=== PATIENT | female | born 1990 | race African-American/Black ===

== ENCOUNTER 2016-12-11 12:06 | Emergency (ER) | payer OTHER ==
[2016-12-11 12:24] VITALS: BP 129/81; PULSE 77; TEMP 98.6; BMI 29.0
[2016-12-11] MEDS ORDERED: IBUPROFEN 600 MG TABLET (FP) PO ONE ×2 (12:52→12:58)
--- NOTE | 2016-12-11 13:06 | PDOC ---
History of Present Illness - General Chief Complaint: Cold Symptoms Stated Complaint: bodyaches Time Seen by Provider: 12/11/16 12:45 History Source: Patient Exam Limitations: No Limitations - History of Present Illness Initial Comments: 12/11/16 13:01 25 yr female no medical history with c/o body aches, sore throat chills started 2 days ago. no fever, no vomiting. Pt took Nyquil last night. no back pain or urinary complaints. LMP 3 weeks ago denies . Severity: reports: mild Past History - Past Medical History Allergies/Adverse Reactions: Allergies Allergy/AdvReac Type Severity Reaction Status Date / Time azithromycin [From Zithromax] Allergy Mild Rash Verified 12/11/16 12:20 Home Medications: Ambulatory Orders NK [No Known Home Medication] 12/11/16 Other medical history: denies - Surgical History Other Surgical History: 12/11/16 13:04 none - Family Disease History Comment:: 12/11/16 13:04 none - Psycho/Social/Smoking Cessation Hx Anxiety: No Suicidal Ideation: No Smoking Status: No Smoking History: Never smoked Number of Cigarettes Smoked Daily: 0 Hx Alcohol Use: No Drug/Substance Use Hx: No Respiratory Specific PMHX - Complaint Specific PMHX Angina: No Bronchitis: No Pneumonia: No Pulmonary Embolus: No TB (Tuberculosis): No Review of Systems - Review of Systems Able to Perform ROS?: Yes Comments:: 12/11/16 13:04 Is the patient limited Indian proficient: No Constitutional: Yes: Symptoms Reported HEENTM: Yes: Symptoms Reported Respiratory: Yes: Symptoms reported, Cough *Physical Exam - Vital Signs Last Vital Signs Temp Pulse Resp BP Pulse Ox 98.6 F 77 20 129/81 98 12/11/16 12:20 12/11/16 12:20 12/11/16 12:20 12/11/16 12:20 12/11/16 12:20 - Physical Exam General Appearance: Yes: Nourished, Appropriately Dressed HEENT: positive: EOMI, AMANDA, Normal ENT Inspection, TMs Normal, Pharynx Normal Neck: positive: Supple. negative: Tender Respiratory/Chest: positive: Lungs Clear, Normal Breath Sounds Cardiovascular: positive: Regular Rhythm, Regular Rate Gastrointestinal/Abdominal: positive: Normal Bowel Sounds, Soft Extremity: positive: Normal Capillary Refill, Normal Inspection, Normal Range of Motion Integumentary: positive: Normal Color, Dry, Warm Neurologic: positive: Fully Oriented, Alert, Normal Mood/Affect, Normal Response , Motor Strength 02/28 ED Treatment Course - Medications Given in the ED: ED Medications Discontinued Medications Generic Name Dose Route Start Last Admin Trade Name Ashli PRN Reason Stop Dose Admin Ibuprofen 600 mg 12/11/16 12:52 12/11/16 13:01 Motrin - PO 12/11/16 12:53 600 mg ONCE ONE Administration Medical Decision Making - Medical Decision Making 12/11/16 13:06 cc: body aches, sore throat no fever or vomiting will check for strep and flu 12/11/16 13:08 *DC/Admit/Observation/Transfer Diagnosis at time of Disposition: Pharyngitis Qualifiers: Pharyngitis/tonsillitis etiology: unspecified etiology Qualified Code(s): J02.9 - Acute pharyngitis, unspecified - Discharge Dispostion Disposition: HOME Condition at time of disposition: Good - Patient Instructions Additional Instructions: drink pleanty of fluids garlge with warm salt water 4-5 times a day take ibuprofen (over the counter advil, motrin, ibuprofen) 600mg every 6hrs for pain follow with your doctor if worse or return to ER for any worsening symptoms
== END 2016-12-11 14:15 | disposition home or self-care (01) ==
LOC: JERFT 12:06
DX: J02.9 Acute pharyngitis, unspecified (principal)
CPT/HCPCS: 87070; 87430; 87804; 99281-25

== ENCOUNTER 2019-04-26 16:18 | Emergency (ER) | payer OTHER ==
[2019-04-26 16:33] VITALS: TEMP 98.4; BMI 25.0
--- NOTE | 2019-04-26 16:35 | PDOC ---
Rapid Medical Evaluation Chief Complaint: Pain, Acute Time Seen by Provider: 04/26/19 16:29 Medical Evaluation: Allergies Allergy/AdvReac Type Severity Reaction Status Date / Time azithromycin [From Zithromax] Allergy Mild Rash Verified 12/11/16 12:20 04/26/19 16:30 I have performed a brief in-person evaluation of this patient. The patient presents with a chief complaint of: sent from [facility], told had ovarian cyst to right- worsen pain with pressure/ + vag bleeding / pain with void and bowels Pertinent physical exam findings: tearful , abd soft but + RLQ pain I have ordered the following: Ua/ UCg, US pelvis The patient will proceed to the ED for further evaluation. 04/26/19 16:34
[2019-04-26 17:37] VITALS: BP 110/40; PULSE 77
[2019-04-26 17:53] LABS: EPI CELLS 2.2 /HPF (0-5/HPF); HYALINE CASTS 1 /lpf (0-8); URINE APPEARANCE CLEAR; URINE BACTERIA 9.3 /hpf (NEGATIVE); URINE BILIRUBIN NEGATIVE (NEGATIVE); URINE COLOR YELLOW; URINE GLUCOSE (UA) NEGATIVE (NEGATIVE); URINE KETONE NEGATIVE (NEGATIVE); URINE LEUK ESTERASE NEGATIVE (NEGATIVE); URINE NITRITE NEGATIVE (NEGATIVE); URINE PROTEIN NEGATIVE (NEGATIVE); URINE RBC 1 /hpf (0-4); URINE UROBILINOGEN 0.2 mg/dL (0.2-1.0); URINE WBC 1 /hpf (0-5)
[2019-04-26 17:54] LABS: HCG,QUALITATIVE URINE Negative
--- NOTE | 2019-04-26 19:20 | PDOC ---
History of Present Illness - General Chief Complaint: Pain, Acute Stated Complaint: PAIN (CYST ON RT SIDE) Time Seen by Provider: 04/26/19 16:29 History Source: Patient Exam Limitations: No Limitations - History of Present Illness Initial Comments: 04/26/19 19:20 28 yo female pmh sig for recently discovered R ovarian cyst presents to the ED for RLQ abdominal pain, pain on urination and defecation. Pt states she saw her primary [employer] DEV[employer] Dr. Townsend last week for a routine check up, discussed RLQ pain she has felt on and off for approx 4 years in the RLQ, was sent for an US and found to have a large R ovarian cyst described as the size of a tennis ball and given the instructions to come to the ED for severe pain. Pain is described as sharp with radiation to the bilateral lower quadrants with pain on urination and defection. Pt states the quality of pain the same as the past 4 years however, the intensity, radiation and pain on urination and defecation are new. Denies N/V/F/C, back pain, blood in the stool, CP, SOB. Dr. Townsend plan is to potentially remove the Cyst as per patient. Past History - Past Medical History Allergies/Adverse Reactions: Allergies Allergy/AdvReac Type Severity Reaction Status Date / Time azithromycin [From Zithromax] Allergy Mild Rash Verified 04/26/19 16:33 Home Medications: Ambulatory Orders NK [No Known Home Medication] 12/11/16 COPD: No - Surgical History Abdominal Surgery: Yes (POLYPS REMOVED) - Reproductive History Is Patient Now?: No - Suicide/Smoking/Psychosocial Hx Smoking Status: No Smoking History: Current some day smoker Number of Cigarettes Smoked Daily: 0 Information on smoking cessation initiated: No Hx Alcohol Use: Yes (OCCASIONALLY) Drug/Substance Use Hx: No Review of Systems - Review of Systems Constitutional: No: Chills, Fever Respiratory: No: Shortness of Breath Cardiac (ROS): No: Chest Pain, Edema ABD/GI: Yes: Other (pain with attempting to defecate ). No: Constipated, Diarrhea, Nausea, Vomiting : Yes: Dysuria. No: Burning, Discharge, Frequency, Flank Pain Musculoskeletal: No: Back Pain Neurological: No: Headache, Numbness, Weakness *Physical Exam - Vital Signs Last Vital Signs Temp Pulse Resp BP Pulse Ox 98.4 F 77 24 H 110/40 L 98 04/26/19 16:30 04/26/19 17:36 04/26/19 17:36 04/26/19 17:36 04/26/19 17:36 - Physical Exam General Appearance: Yes: Nourished, Appropriately Dressed. No: Apparent Distress HEENT: positive: EOMI Neck: positive: Supple Respiratory/Chest: positive: Lungs Clear, Normal Breath Sounds. negative: Crackles, Rales, Rhonchi, Stridor, Wheezing Cardiovascular: positive: Regular Rhythm, Regular Rate, S1, S2. negative: Edema , JVD, Murmur Vascular Pulses: Dorsalis-Pedis (R): 4+, Doralis-Pedis (L): 4+ Female Pelvic Exam: positive: other (AMA prior to completing exam) Gastrointestinal/Abdominal: positive: Flat, Soft, Tenderness (RLQ). negative: Pulsatile Mass, Distended, Guarding, Rebound Musculoskeletal: negative: CVA Tenderness Extremity: positive: Normal Capillary Refill, Normal Inspection Integumentary: positive: Normal Color, Dry, Warm Neurologic: positive: Fully Oriented, Alert ED Treatment Course - ADDITIONAL ORDERS Additional order review: Laboratory Results 04/26/19 17:40 Urine Color Yellow Urine Appearance Clear Urine pH 5.0 Ur Specific Gregory 1.023 Urine Protein Negative Urine Glucose (UA) Negative Urine Ketones Negative Urine Blood 3+ H Urine Nitrite Negative Urine Bilirubin Negative Urine Urobilinogen 0.2 Ur Leukocyte Esterase Negative Urine WBC (Auto) 1 Urine RBC (Auto) 1 Urine Casts (Auto) 1 U Epithel Cells (Auto) 2.2 Urine Bacteria (Auto) 9.3 Urine HCG, Qual Negative Medical Decision Making - Medical Decision Making 04/26/19 19:54 28 yo female with recently diagnosed R ovarian cyst presents with RLQ pain, pain on urination and defecation today. Denies s/s of significant infection, CVA tenderness. Vitals WNL DDX INLT: large ovarian cyst with impingement/torsion, UTI, Renal stone, appendicitis 04/26/19 20:19 US shows no signs of torsion, R ovarian cyst 5 cm by 4.4 cm UA shows 3+ blood. Call placed to Dr. Townsend, Dr. Armstrong covering Case presented to Dr. Armstrong, states the RLQ pain, urinary and defecation s/ s are not related to the cyst. OB will follow up as an outpatient Basic labs and spiral CT ordered to r/o stone vs possible appy/intradominal path 04/26/19 20:41 Pt states she must leave the ER to take care of her children and can not wait for blood work or Spiral CT. Pt has full capacity and understands that leaving the ED without adequate testing, she may worsen her current clinical condition and potentially can lead to disability and . Pt understands risks and signs AMA form *DC/Admit/Observation/Transfer Diagnosis at time of Disposition: Ovarian cyst - Discharge Dispostion Disposition: AGAINST MEDICAL ADVICE Condition at time of disposition: Stable Decision to Admit order: No - Referrals Referrals: Rosita Townsend DO [Staff Physician] - - Patient Instructions Printed Discharge Instructions: DI for Ovarian Cyst Additional Instructions: Please see your Primary Doctor and OB Doctor within the next 48 hours. You are signing out of the ER against medical advise with full disclosure that you may have significant intra abdominal pathology that may lead to worsening pain and even . Blood work and an abdominal CAT scan were ordered but not completed. Take over the counter tylenol for your pain and return to the ER at anytime for any further concerns Thank you - Post Discharge Activity
--- NOTE | 2019-04-26 21:06 | PDOC ---
Documentation entered by Dany Garsia SCRIBE, acting as scribe for Tata Merida MD. Tata Merida MD: This documentation has been prepared by the Ady gloria Daniel, SCRIBE, under my direction and personally reviewed by me in its entirety. I confirm that the documentation accurately reflects all work, treatment, procedures, and medical decision making performed by me. Attending Attestation - Resident Resident Name: Carlton Leon - ED Attending Attestation I have performed the following: I have examined & evaluated the patient, The case was reviewed & discussed with the resident, I agree w/resident's findings & plan, Exceptions are as noted - HPI HPI: 04/26/19 20:00 The patient is a 28 year old female with no past medical history here today for evaluation of right lower quadrant abdominal pain. The patient reports that she had imaging done at her OBs office last week which showed a right ovarian cyst. Patient reports that she has had intermittent right lower quadrant pain for the past 4 years but it has been the worst today. She also notes associated pain with urination and bowel movements. Patient denies headache, lightheadedness. Denies fever, chills. Denies chest pain, shortness of breath. Denies nausea, vomiting, diarrhea. Allergies: azithromycin OB: Rosita Townsend - Physicial Exam PE: 04/26/19 21:02 wnwd 28 yo female p/w rt lower quadrant/groin pain head ncat neck supple lungs cta b/l cvs [id number] abdomen RLQ tenderness to deep palpation but no rebound,no guarding no flank pain skin warm and dry neuro axox3,ambulatory psych appropriate - Medical Decision Making 04/26/19 21:05 US showed large rt ovarian cyst, pt started she could not stay for ct scan and signed AMA
== END 2019-04-26 21:03 | disposition left against medical advice (07) ==
LOC: JER 16:18
DX: N83.201 Unspecified ovarian cyst, right side (principal)
CPT/HCPCS: 76856-TC; 81003; 84703; 99282-25

== ENCOUNTER 2020-11-12 15:55 | Emergency (ER) | payer SELFPAY ==
[2020-11-12 16:20] VITALS: BP 114/50; PULSE 67; TEMP 98; BMI 22.4
[2020-11-12 17:22] LABS: URINE APPEARANCE CLEAR; URINE BILIRUBIN NEGATIVE (NEGATIVE); URINE COLOR YELLOW; URINE GLUCOSE (UA) NEGATIVE (NEGATIVE); URINE KETONE NEGATIVE (NEGATIVE); URINE LEUK ESTERASE NEGATIVE (NEGATIVE); URINE NITRITE NEGATIVE (NEGATIVE); URINE PROTEIN NEGATIVE (NEGATIVE); URINE UROBILINOGEN 0.2 mg/dL (0.2-1.0)
== END 2020-11-12 17:42 | disposition home or self-care (01) ==
LOC: JERFT 15:55 → JER 15:55 → JERFT 17:42
DX: N76.0 Acute vaginitis (principal)
CPT/HCPCS: 36415; 81003; 84703; 87086; 87491; 87591; 99283-25

== ENCOUNTER 2020-12-03 13:54 | Emergency (ER) | payer SELFPAY ==
[2020-12-03 14:01] VITALS: BP 118/68; PULSE 80; TEMP 98; BMI 25.0
[2020-12-03] MEDS ORDERED: cefTRIAXone SODIUM 1 GM VIAL ONE (14:53)
== END 2020-12-03 15:45 | disposition home or self-care (01) ==
LOC: JERFT 13:54
DX: A54.9 Gonococcal infection, unspecified (principal)
CPT/HCPCS: 99284-25

== ENCOUNTER 2021-02-08 23:22 | Emergency (ER) | payer OTHER ==
[2021-02-08 23:35] VITALS: TEMP 98.5; BMI 23.9
[2021-02-09] MEDS ORDERED: ONDANSETRON 4 MG TABLET PO ONE (00:57)
[2021-02-09] MEDS ORDERED: ACETAMINOPHEN 500 MG TABLET (FP) PO ONE (00:57)
[2021-02-09] MEDS ORDERED: ACETAMINOPHEN 500 MG TABLET (FP) ONE (01:56)
[2021-02-09] MEDS ORDERED: ONDANSETRON *ODT* 4 MG TABLET ONE (01:56)
[2021-02-09 03:28] LABS: PH,URINE >= 9.0 (5.0-8.0); URINE APPEARANCE CLOUDY; URINE BILIRUBIN NEGATIVE (NEGATIVE); URINE COLOR YELLOW; URINE GLUCOSE (UA) NEGATIVE (NEGATIVE); URINE KETONE NEGATIVE (NEGATIVE); URINE LEUK ESTERASE NEGATIVE (NEGATIVE); URINE NITRITE NEGATIVE (NEGATIVE); URINE PROTEIN TRACE (NEGATIVE)
[2021-02-09 03:30] LABS: HCG,QUALITATIVE URINE Negative
[2021-02-09 04:19] VITALS: BP 120/76; PULSE 78
== END 2021-02-09 04:25 | disposition home or self-care (01) ==
LOC: JER 23:22
DX: R10.30 Lower abdominal pain, unspecified (principal)
CPT/HCPCS: 76830-TC; 81003; 84703; 87086; 99284-25

== ENCOUNTER 2021-02-16 17:30 | Emergency (ER) | payer OTHER ==
[2021-02-16 17:40] VITALS: BP 109/68; PULSE 58; TEMP 98.2; BMI 24.1
[2021-02-16] MEDS ORDERED: KETOROLAC TROMETHAMINE 15 MG/ML VIAL IVPUSH ONE (18:49)
[2021-02-16] MEDS ORDERED: KETOROLAC TROMETHAMINE 15 MG/ML VIAL ONE (19:19)
[2021-02-16 19:32] LABS: BASO % 0.8 % (0-2.0); EOS % 0.9 % (0-4.5); HEMATOCRIT 40.8 % (32.4-45.2); HEMOGLOBIN 13.6 GM/dL (10.7-15.3); LYMPH % 33.4 % (8-40); MCH 31.2 pg (25.7-33.7); MCHC 33.4 g/dl (32.0-36.0); MEAN CELL VOLUME 93.5 fl (80-96); MEAN PLT VOLUME 9.6 fl (7.5-11.1); NEUT % 59.9 % (42.8-82.8); PLATELET COUNT 222 K/MM3 (134-434); RBC 4.37 M/mm3 (3.60-5.2); RDW 13.6 % (11.6-15.6); WHITE BLOOD COUNT 11.4 K/mm3 (4.0-10.0)
[2021-02-16 19:37] LABS: EPI CELLS 4 /uL (0-25.1); HYALINE CASTS 0 /uL (0-3.1); URINE APPEARANCE CLEAR; URINE BACTERIA 96 /uL (0-1359); URINE BILIRUBIN NEGATIVE (NEGATIVE); URINE COLOR YELLOW; URINE GLUCOSE (UA) NEGATIVE (NEGATIVE); URINE KETONE NEGATIVE (NEGATIVE); URINE LEUK ESTERASE NEGATIVE (NEGATIVE); URINE NITRITE NEGATIVE (NEGATIVE); URINE PROTEIN NEGATIVE (NEGATIVE); URINE RBC 7 /uL (0-23.9); URINE UROBILINOGEN 0.2 mg/dL (0.2-1.0); URINE WBC 3 /uL (0-25.8)
[2021-02-16 19:55] LABS: CALCIUM 9.6 mg/dL (8.5-10.1)
[2021-02-16 19:56] LABS: ALBUMIN 4.4 g/dl (3.4-5.0); BLOOD UREA NITROGEN 13.3 mg/dL (7-18)
[2021-02-16 19:59] LABS: CREATININE 0.9 mg/dL (0.55-1.3)
[2021-02-16 20:01] LABS: BILIRUBIN,TOTAL 0.3 mg/dL (0.2-1); TOT PROT 7.8 g/dl (6.4-8.2)
[2021-02-16] MEDS ORDERED: metroNIDAZOLE 500 MG TABLET PO ONE (20:49)
[2021-02-16] MEDS ORDERED: metroNIDAZOLE 250 MG TABLET ONE (20:51)
== END 2021-02-16 21:05 | disposition home or self-care (01) ==
LOC: JER 17:30
PROC: 3E0333Z Introduction of Anti-inflammatory into Peripheral Vein, Percutaneous Approach (ICD-10-PCS; principal; 2021-02-16)
DX: N76.0 Acute vaginitis (principal); N93.8 Other specified abnormal uterine and vaginal bleeding
CPT/HCPCS: 36415; 76830-TC; 80053; 81003; 84703; 85025; 87086; 87491; 87591; 87661; 99284-25

== ENCOUNTER 2021-06-18 16:40 | Emergency (ER) | payer OTHER ==
[2021-06-18 16:47] VITALS: BP 108/68; PULSE 104; TEMP 98.2; BMI 27.4
[2021-06-18 19:53] LABS: PH,URINE 5.5 (5.0-8.0); URINE APPEARANCE CLEAR; URINE BILIRUBIN NEGATIVE (NEGATIVE); URINE COLOR YELLOW; URINE GLUCOSE (UA) NEGATIVE (NEGATIVE); URINE KETONE NEGATIVE (NEGATIVE); URINE LEUK ESTERASE NEGATIVE (NEGATIVE); URINE NITRITE NEGATIVE (NEGATIVE); URINE PROTEIN NEGATIVE (NEGATIVE); URINE UROBILINOGEN 0.2 mg/dL (0.2-1.0)
[2021-06-18 19:55] LABS: HCG,QUALITATIVE URINE Negative
[2021-06-18] MEDS ORDERED: IBUPROFEN 600 MG TABLET (FP) PO ONE ×2 (20:14→20:17)
== END 2021-06-18 20:28 | disposition home or self-care (01) ==
LOC: JER 16:40
DX: M94.0 Chondrocostal junction syndrome [Tietze] (principal)
CPT/HCPCS: 71046-TC-FY; 81003; 84703; 93005; 93010; 99285-25

== ENCOUNTER 2021-06-28 14:58 | Emergency (ER) | payer OTHER ==
[2021-06-28 15:28] VITALS: BMI 27.4
[2021-06-28] MEDS ORDERED: METOCLOPRAMIDE HCL INJECTION 10 MG/2 ML VIAL IVPUSH ONE (15:33)
[2021-06-28] MEDS ORDERED: SODIUM CHLORIDE 0.9% 500 ML INFUS.BAG IV ONE (15:33)
[2021-06-28] MEDS ORDERED: LORazepam 2 MG/ML SDV VIAL IVPUSH ONE (15:45)
[2021-06-28] MEDS ORDERED: LORazepam 2 MG/ML SDV VIAL ONE (15:48)
[2021-06-28] MEDS ORDERED: METOCLOPRAMIDE HCL INJECTION 10 MG/2 ML VIAL ONE (15:48)
[2021-06-28 16:23] LABS: BASO % 0.3 % (0-2.0); EOS % 1.2 % (0-4.5); HEMATOCRIT 40.1 % (32.4-45.2); HEMOGLOBIN 13.6 GM/dL (10.7-15.3); LYMPH % 7.1 % (8-40); MCH 31.1 pg (25.7-33.7); MCHC 33.8 g/dl (32.0-36.0); MEAN CELL VOLUME 91.8 fl (80-96); MEAN PLT VOLUME 9.1 fl (7.5-11.1); MONO % 3.4 % (3.8-10.2); PLATELET COUNT 228 10^3/uL (134-434); RBC 4.36 M/mm3 (3.60-5.2); RDW 13.8 % (11.6-15.6); WHITE BLOOD COUNT 11.9 K/mm3 (4.0-10.0)
[2021-06-28] MEDS ORDERED: ONDANSETRON 4 MG/2 ML VIAL IVPUSH ONE (17:12)
[2021-06-28 17:19] LABS: CALCIUM 9.2 mg/dL (8.5-10.1)
[2021-06-28 17:20] LABS: ALBUMIN 4.1 g/dl (3.4-5.0); BLOOD UREA NITROGEN 14.9 mg/dL (7-18)
[2021-06-28 17:23] LABS: CREATININE 0.9 mg/dL (0.55-1.3)
[2021-06-28 17:24] LABS: BILIRUBIN,TOTAL 0.4 mg/dL (0.2-1)
[2021-06-28 17:25] LABS: TOT PROT 7.6 g/dl (6.4-8.2)
[2021-06-28] MEDS ORDERED: ONDANSETRON 4 MG/2 ML VIAL ONE (18:22)
[2021-06-28 19:01] VITALS: BP 116/62; PULSE 82; TEMP 98.3
== END 2021-06-28 19:02 | disposition home or self-care (01) ==
LOC: JER 14:58
PROC: 3E033GC Introduction of Other Therapeutic Substance into Peripheral Vein, Percutaneous Approach (ICD-10-PCS; principal; 2021-06-28)
DX: R11.2 Nausea with vomiting, unspecified (principal)
CPT/HCPCS: 36415; 80053; 83690; 84703; 85025; 99284-25